=== PATIENT | female | born 1990 | race Native Hawaiian/Other Pacific Islander ===

== ENCOUNTER 2018-02-19 09:06 | Emergency (ER) | payer OTHER ==
[2018-02-19 09:17] VITALS: BMI 24.2
--- NOTE | 2018-02-19 10:42 | ED PDOC ---
Arrival/HPI - General Chief Complaint: Back Pain Time Seen by Provider: 02/19/18 09:33 Historian: Patient - History of Present Illness Narrative History of Present Illness (Text): 02/19/18 10:36 28-year-old female presents today with low back pain status post injury. Patient states after lifting a bag of bananas she fell pain and stiffness in the lower back. She denies bladder or bowel incontinence. She denies numbness weakness or tingling in the extremities. Patient denies abdominal pain. No chest pain or shortness of breath. Incident occurred prior to arrival. No medications have been taken for pain at home. Patient denies the pain as a stiff achy sharp pain that's greatest in the middle to left side of the low back. Patient denies radiation of the pain. Patient states pain is worse with movement of the back and ambulation. Time/Duration: 1-3 hours Past Medical History - Provider Review Nursing Documentation Reviewed: Yes - Travel History Have you recently traveled outside [place] w/in the past 3 mons?: No - Infectious Disease Hx of Infectious Diseases: None - Pulmonary Hx Asthma: Yes - Psychiatric Hx Substance Use: No - Surgical History Hx Section: Yes (x1) - Anesthesia Hx Anesthesia: Yes Hx Anesthesia Reactions: No Hx Malignant Hyperthermia: No Family/Social History - Physician Review Nursing Documentation Reviewed: Yes Family/Social History: Unknown Family HX Smoking Status: Never Smoked Hx Alcohol Use: No Hx Substance Use: No Allergies/Home Meds Allergies/Adverse Reactions: Allergies No Known Allergies Allergy (Verified 02/19/18 09:21) Review of Systems - Review of Systems Constitutional: absent: Fatigue, Fevers Respiratory: absent: SOB, Cough Cardiovascular: absent: Chest Pain, Palpitations Gastrointestinal: absent: Abdominal Pain, Nausea, Vomiting Genitourinary Female: absent: Frequency, Hematuria Musculoskeletal: Back Pain. absent: Arthralgias, Neck Pain Skin: absent: Rash, Pruritis Neurological: absent: Headache, Dizziness Psychiatric: absent: Anxiety, Depression Physical Exam Vital Signs Reviewed: Yes Vital Signs Temp Pulse Resp BP Pulse Ox 02/19/18 09:17 98.4 F 67 18 122/78 98 Temperature: Afebrile Blood Pressure: Normal Pulse: Regular Respiratory Rate: Normal Appearance: Positive for: Well-Appearing, Non-Toxic, Comfortable Pain Distress: None Mental Status: Positive for: Alert and Oriented X 3 - Systems Exam Head: Present: Atraumatic Mouth: Present: Moist Mucous Membranes Neck: Present: Normal Range of Motion Respiratory/Chest: Present: Clear to Auscultation, Good Air Exchange. No: Respiratory Distress, Accessory Muscle Use Cardiovascular: Present: Regular Rate and Rhythm, Normal S1, S2. No: Murmurs Abdomen: No: Tenderness, Distention, Peritoneal Signs, Rebound, Guarding Back: Present: Normal Inspection, Midline Tenderness, Paraspinal Tenderness (left sided paraspinal tenderness). No: CVA Tenderness, Pain with Leg Raise Upper Extremity: Present: Normal Inspection, Normal ROM Lower Extremity: Present: Normal Inspection, Normal ROM, Neurovascularly Intact. No: Tenderness, Swelling Neurological: Present: GCS=15, Speech Normal, Motor Func Grossly Intact, Normal Sensory Function, Gait Normal Skin: Present: Warm, Dry, Normal Color. No: Rashes Psychiatric: Present: Alert, Oriented x 3 Medical Decision Making ED Course and Treatment: 02/19/18 10:43 Patient nontoxic well-appearing in no distress with stable vital signs. toradol IM xray ls spine; no fracture Patient reassessment: Feeling better with medications ambulating with a steady gait. Muscle strength 5 out of 5 bilaterally. I advised to followup with the orthopedist within the next 2 days. Return if symptoms worsen persist or new symptoms develop Impression: Back pain Motrin every 6 hours as needed for pain Flexeril one tablet every 8 hours as needed for muscle spasms: May cause drowsiness Followup with the orthopedist within the next 2 days Followup with primary care physician within the next 2 days Return if symptoms worsen persist or if new symptoms develop Reassessment Condition: Re-examined, Improved - RAD Interpretation Radiology Orders: 02/19/18 10:17 LS SPINE WITH OBL > 18 YRS OLD [RAD] Stat - Medication Orders Current Medication Orders: Ketorolac Tromethamine (Toradol) 60 mg IM STAT STA Stop: 02/19/18 10:18 Disposition/Present on Arrival - Present on Arrival Any Indicators Present on Arrival: No History of DVT/PE: No History of Uncontrolled Diabetes: No Urinary Catheter: No History of Decub. Ulcer: No History Surgical Site Infection Following: None - Disposition Have Diagnosis and Disposition been Completed?: Yes Diagnosis: Back pain Disposition: HOME/ ROUTINE Disposition Time: 10:44 Patient Plan: Discharge Patient Problems: Current Active Problems Problem Status Onset Back pain Acute Condition: GOOD Discharge Instructions (ExitCare): Low Back Pain in Adults Additional Instructions: Motrin every 6 hours as needed for pain Flexeril one tablet every 8 hours as needed for muscle spasms: May cause drowsiness Followup with the orthopedist within the next 2 days Followup with primary care physician within the next 2 days Return if symptoms worsen persist or if new symptoms develop Prescriptions: Cyclobenzaprine [Cyclobenzaprine HCl] 10 mg PO Q8 #10 tab Ibuprofen [Motrin] 600 mg PO Q6H PRN #20 tab PRN Reason: pain/fever reduction Referrals: Yolis Maciel MD [Primary Care Provider] - Follow up with primary [facility] [Outside] - Follow up with primary Larry Morrissey MD [Staff Provider] - Follow up with primary Forms: [employer] (Danish), WORK NOTE
[2018-02-19 12:24] VITALS: BP 125/87; PULSE 69; RESP 19; TEMP 98.2; O2SAT 99
--- NOTE | 2018-02-19 12:42 | RAD ---
Date of service: 02/19/2018 PROCEDURE: Radiographs of the Lumbar Spine. HISTORY: back pain COMPARISON: No prior. FINDINGS: BONES: Normal alignment. No listhesis. No fracture. DISC SPACES: Unremarkable. OTHER FINDINGS: None. IMPRESSION: Unremarkable radiographs of the lumbar spine.
== END 2018-02-19 12:24 | disposition home or self-care (01) ==
LOC: ED 09:06
DX: M54.5 Low back pain (principal)
CPT/HCPCS: 72110; 96372; 99281; J1885